=== PATIENT | female | born 1940 | race Caucasian/White ===

== ENCOUNTER 2019-03-20 16:10 | Emergency (ER) | payer OTHER, SELFPAY ==
[2019-03-20 16:15] VITALS: BP 158/69; PULSE 95; RESP 18; TEMP 36.7; O2SAT 97
[2019-03-20 18:38] VITALS: BP 168/86; PULSE 80; RESP 20; O2SAT 97
--- NOTE | 2019-03-21 02:16 | ED_ITS ---
HPI - Anxiety General Chief Complaint: Anxiety Stated Complaint: MULTIPLE PANIC ATTACKS Time Seen by Provider: 03/20/19 18:17 Source: patient and family Mode of arrival: ambulatory Limitations: no limitations History of Present Illness HPI narrative: 78-year-old female nonsmoker presents with her daughter and a chief complaint of significant anxiety since running out of her medications. She recently relocated had not yet established care. She frequently becomes tearful and anxious with rapid breathing with very minimal stimulus. She denies any chest pain or shortness of breath though she frequently gets palpitations. Prior to her arrival she was a bit dizzy and lightheaded but has few other complaints. MD complaint: anxiety Onset (ago): day(s) Severity: moderate Quality: intermittent Place: home History of similar episodes: Yes Provoking factors: medication change Relieving factors: medication Exacerbating factors: thinking about event Associated symptoms: shortness of breath and palpitations Related Data Previous Rx's Medication Instructions Recorded duloxetine 60 mg PO DAILY #14 cap 03/20/19 Allergies Allergy/AdvReac Type Severity Reaction Status Date / Time shellfish derived Allergy Anaphylaxis Verified 03/20/19 16:22 Review of Systems Constitutional Denies chills, Denies fever(s), Denies lethargy and Denies weakness Eyes Denies change in vision, Denies eye discharge, Denies irritation and Denies loss of vision ENT Ears, Nose, Mouth, and Throat: Denies change in voice, Denies neck pain and Denies sore throat Cardiovascular Denies chest pain, Denies irregular heart rhythm, Denies lightheadedness, Denies palpitations, Denies dyspnea, Denies dyspnea on exertion and Denies orthopnea Respiratory Denies cough, Denies dyspnea, Denies dyspnea on exertion and Denies wheezing Gastrointestinal Gastrointestinal: Denies abdominal pain, Denies change in bowel habits, Denies diarrhea, Denies nausea and Denies vomiting Genitourinary Denies hematuria, Denies flank pain, Denies urinary incontinence and Denies urinary urgency Musculoskeletal Denies neck pain Integumentary/Breasts Denies pruritus, Denies erythema, Denies rash and Denies wounds Neurologic Denies confusion, Denies loss of vision and Denies weakness Psychiatric Reports anxiety, Denies confusion, Denies depression, Denies homicidal ideation and Denies suicidal ideation Endocrine Denies palpitations Hematologic/Lymphatic Denies easy bruising Allergic/Immunologic Denies wheezing PFSH Social History Smoking Status: Former smoker Social History Smoking Status: Former smoker Exam Narrative Exam Narrative: GEN: 78-year-old female appears stated age, tearful EYES: Pupils are equal, round, and reactive to light and accommodation. Extraoccular muscles are intact bilaterally. There is no subconjunctival hemorrhage or exudate. CHEST: Lungs are clear to auscultation bilaterally and free of wheezes, rales, or rhonchi. Heart rate is regular rhythm, there are no murmurs, clicks, rubs, or gallops. There is no chest wall tenderness. ABD: Abdomen is soft and nontender. There is no guarding or rebound. Bowel sounds are normal in all 4 quadrants. There is no mass or organomegaly. EXT: Full painless ROM of all extremities with no loss of sensation or strength. SKIN: Warm, pink, and dry. No erythema or rash Initial Vital Signs Initial Vital Signs: Vital Signs Temperature 98.0 F 03/20/19 16:15 Pulse Rate 95 H 03/20/19 16:15 Respiratory Rate 18 03/20/19 16:15 Blood Pressure 158/69 H 03/20/19 16:15 Pulse Oximetry 97 03/20/19 16:15 Course Vital Signs - 8 hr 03/20/19 18:38 Pulse Rate 80 Respiratory Rate 20 Blood Pressure [Left Wrist] 168/86 H Pulse Oximetry 97 Discharge Plan Departure Patient Disposition: Home Clinical Impression: Acute anxiety, Panic disorder Discharge Date/Time: 03/20/19 18:50 Interventions: ED Discharge Assessment Last Done: 03/20/19 18:50 Instructions: Anxiety Disorders Activity Restrictions/Additional Instructions: *You have been diagnosed with [ anxiety, medical noncompliance] *What to do: *Take medications as directed: Your prescription has been electronically transmitted to [facility] in [place] *Follow up with your primary care provider in 2-3 days, call for an appointment. Let them know you were seen in the Emergency Department and that we ask that you be seen in follow up. Attached is the contact info for the new provider line at [facility]. Please call *Return to ER if you should have any new, worsening or concerning symptoms Prescriptions: New duloxetine 60 mg capsule,delayed release(DR/EC) 60 mg PO DAILY Qty: 14 RF: 0 Referrals: [facility] [Outside]
== END 2019-03-20 18:50 | disposition home or self-care (01) ==
PROVIDERS: Emergency Provider Emergency Medicine
DX: F41.9 Anxiety disorder, unspecified (principal); F41.0 Panic disorder [episodic paroxysmal anxiety]
CPT/HCPCS: 99282; 99283

== ENCOUNTER 2019-11-22 18:53 | Emergency (ER) | payer OTHER, SELFPAY ==
[2019-11-22 19:21] VITALS: BP 157/69; PULSE 83; RESP 20; TEMP 36.1; O2SAT 96
[2019-11-22 22:00] VITALS: BP 166/77; PULSE 83; RESP 18; O2SAT 96
--- NOTE | 2019-11-22 22:11 | ED.LOWEXIN ---
HPI - Extremity Injury (Lower) General Chief Complaint: Extremity Injury, Lower Stated Complaint: LEFT LEG FEELS WARM HOT RED Time Seen by Provider: 11/22/19 21:39 Source: patient Mode of arrival: Ambulatory Limitations: no limitations History of Present Illness HPI Narrative: 79-year-old female former smoker with history of extensive, chronic bilateral lower extremity edema presents with a red, painful and warm area to her anterior mcclain. She denies any known injury and states she is concerned for blood clot. She denies any history of blood clot, recent travel or known cancer. She has had no systemic findings such as fever, shaking chills nor nausea vomiting or shortness of breath. She has had no chest pain or cough. She denies abdominal pain. She has had no dysuria, frequency or urgency MD complaint: other Onset (ago): hour(s) Relieving factors: rest Exacerbating factors: palpation Other symptoms: none Related Data Previous Rx's Medication Instructions Recorded duloxetine 60 mg PO DAILY #14 cap 03/20/19 cephalexin [Keflex] 500 mg PO QID 7 Days #28 cap 11/23/19 Allergies Allergy/AdvReac Type Severity Reaction Status Date / Time shellfish derived Allergy Anaphylaxis Verified 03/20/19 16:22 Review of Systems Constitutional Constitutional: Denies chills, Denies fatigue, Denies fever(s), Denies frequent falls, Denies lethargy and Denies weakness Eyes Eyes: Denies change in vision, Denies eye discharge, Denies irritation and Denies loss of vision ENT Ears, Nose, Mouth, and Throat: Denies change in voice, Denies dizziness, Denies neck pain, Denies sore throat and Denies throat swelling Cardiovascular Cardiovascular: Denies chest pain, Denies irregular heart rhythm, Denies lightheadedness, Denies palpitations, Denies dyspnea, Denies dyspnea on exertion and Denies orthopnea Respiratory Respiratory: Denies cough, Denies dyspnea, Denies dyspnea on exertion and Denies wheezing Gastrointestinal Gastrointestinal: Denies abdominal pain, Denies change in bowel habits, Denies diarrhea, Denies nausea and Denies vomiting Genitourinary Genitourinary: Denies hematuria, Denies flank pain, Denies urinary incontinence and Denies urinary urgency Musculoskeletal Musculoskeletal: Denies back pain, Denies muscle weakness, Denies neck pain, Denies numbness and Denies tingling Integumentary/Breasts Skin/Breast: Denies pruritus, Reports erythema, Denies rash, Reports skin pain, Reports skin swelling and Denies wounds Neurologic Neurologic: Denies behavioral changes, Denies confusion, Denies dizziness, Denies frequent falls, Denies loss of vision, Denies numbness, Denies tingling and Denies weakness Psychiatric Psychiatric: Denies anxiety, Denies behavioral changes, Denies confusion, Denies depression, Denies homicidal ideation and Denies suicidal ideation Endocrine Endocrine: Denies fatigue, Denies flushing and Denies palpitations Hematologic/Lymphatic Hematologic/Lymphatic: Denies easy bruising Allergic/Immunologic Allergic/Immunologic: Denies urticaria, Denies throat swelling and Denies wheezing Patient History Social History Smoking Status: Former smoker Smoking Status: Former smoker alcohol intake frequency: other Substance Use Type: does not use Exam Narrative Exam Narrative: GEN: 79-year-old female appears stated age, AOx3 and in mild distress EYES: Pupils are equal, round, and reactive to light and accommodation. Extraoccular muscles are intact bilaterally. There is no subconjunctival hemorrhage or exudate. CHEST: Lungs are clear to auscultation bilaterally and free of wheezes, rales, or rhonchi. Heart rate is regular rhythm, there are no murmurs, clicks, rubs, or gallops. There is no chest wall tenderness. ABD: Abdomen is soft and nontender. There is no guarding or rebound. Bowel sounds are normal in all 4 quadrants. There is no mass or organomegaly. EXT: 3 x 2 cm area of erythema and warmth of left anterior mcclain with a central area of which is a bit darker red. No induration, fluctuance, drainage or obvious break in the skin Full painless ROM of all extremities with no loss of sensation or strength. SKIN: Warm, pink, and dry. No erythema or rash of exposed areas other than that which is noted above Initial Vital Signs Initial Vital Signs: Vital Signs Temperature 96.9 F L 11/22/19 19:21 Pulse Rate 83 11/22/19 19:21 Respiratory Rate 20 11/22/19 19:21 Blood Pressure 157/69 H 11/22/19 19:21 Pulse Oximetry 96 11/22/19 19:21 Course Orders Ordered: Discontinued Medications Cefazolin Sodium (Keflex 250 Mg Prepack) 1 bottle [facility] ONE Stop: 11/23/19 01:03 Last Admin: 11/23/19 01:08 Dose: 500 mg Documented by: HILTON Vital Signs Vital signs: Vital Signs - 8 hr 11/22/19 19:21 11/22/19 22:00 Temperature 96.9 F L Pulse Rate 83 83 Respiratory Rate 20 18 Blood Pressure 157/69 H Blood Pressure [Left Arm] 166/77 H Pulse Oximetry 96 96 MDM - Extremity Injury (Lower) Imaging Data US - DVT: Radiologist's Impression: DkCristobaljonnytraci Luis Alfredo 79 F [address] [address] Ultrasound Report Signed Patient: Tano Root JMR#: [id number] : [id number]:[id number] Age/Sex: 79 / FDate of Service: 11/22/19 Loc: ED Accession Number: [id number] Procedure: US perip venous low extrem lt Ordering Provider: Francisco Hernandez D.O. PROCEDURE: US PERIP VENOUS LOW EXTREM LT INDICATIONS: RED, SWOLLEN, PAINFUL TECHNIQUE: Real-time imaging, as well as color and pulse Doppler interrogation, were performed of the lower extremity deep veins from the inguinal ligament to the popliteal fossa. COMPARISON: None. FINDINGS: Study somewhat limited by patient body habitus. The common femoral, femoral and popliteal veins are normally compressible, and free of intraluminal thrombus. Color and pulse Doppler demonstrate normal phasic intraluminal flow. There is normal augmentation response to distal compression maneuver. IMPRESSION: No deep vein thrombosis of left lower extremity. These findings are concordant with the overnight interpretation. Dictated by: Waleska Cano M.D. on 11/23/2019 at 7:35 Approved by: Waleska Cano M.D. on 11/23/2019 at 7:36 [facility] Narrative Medical decision making narrative: Multiple etiologies for patient's symptoms considered including: [DVT (thought less likely given lack of findings on ultrasound) versus cellulitis which is thought to be the most likely diagnosis given history and physical, versus other] Patient's symptoms improved or duration of stay with above-stated therapies. Findings and discharge diagnosis discussed with patient/family followed by verbalization of understanding Return precautions discussed with patient/family whom verbalize understanding. Discharge Plan Departure Patient Disposition: Home Clinical Impression: Cellulitis of lower extremity Qualifiers: Laterality: left Qualified Code(s): L03.116 - Cellulitis of left lower limb Discharge Date/Time: 11/23/19 01:14 Instructions: DI for Cellulitis -- Adult Activity Restrictions/Additional Instructions: *You have been diagnosed with [left lower extremity cellulitis] *What to do: *Take medications as directed *Follow up with your primary care provider in 2-3 days, call for an appointment. Let them know you were seen in the Emergency Department and that we ask that you be seen in follow up *Return to ER if you should have any new, worsening or concerning symptoms Prescriptions: New cephalexin [Keflex] 500 mg capsule 500 mg PO QID 7 Days Qty: 28 RF: 0 No Action duloxetine 60 mg capsule,delayed release(DR/EC) 60 mg PO DAILY Qty: 14 RF: 0
--- NOTE | 2019-11-22 22:19 | DI.US.S_ITS ---
PROCEDURE: US PERIPH VENOUS LOW EXTREM LT INDICATIONS: RED, SWOLLEN, PAINFUL TECHNIQUE: Real-time imaging, as well as color and pulse Doppler interrogation, were performed of the lower extremity deep veins from the inguinal ligament to the popliteal fossa. COMPARISON: None. FINDINGS: Study somewhat limited by patient body habitus. The common femoral, femoral and popliteal veins are normally compressible, and free of intraluminal thrombus. Color and pulse Doppler demonstrate normal phasic intraluminal flow. There is normal augmentation response to distal compression maneuver. IMPRESSION: No deep vein thrombosis of left lower extremity. These findings are concordant with the overnight interpretation. Dictated by: Waleska Cano M.D. on 11/23/2019 at 7:35 Approved by: Waleska Cano M.D. on 11/23/2019 at 7:36
[2019-11-23 00:08] VITALS: BP 164/70; PULSE 81; RESP 20; O2SAT 97
[2019-11-23] MEDS: cephALEXin 250 MG PREPACK 1 BOTTLE MISC (01:08)
== END 2019-11-23 01:14 | disposition home or self-care (01) ==
PROVIDERS: Emergency Provider Emergency Medicine
DX: L03.116 Cellulitis of left lower limb (principal)
CPT/HCPCS: 93971; 99282; 99283

== ENCOUNTER 2020-02-13 16:48 | Emergency (ER) | payer OTHER, SELFPAY ==
[2020-02-13 17:02] VITALS: BP 134/70; PULSE 90; RESP 15; TEMP 36.4; O2SAT 97
--- NOTE | 2020-02-13 18:44 | PC.NURSE ---
Patient has a history of lymphedema. Has history of cellulites in same region back in november. patient denies fevers or chills. Reports normal amount of swelling to legs. New redness noted morning.
[2020-02-13] MEDS: TRIMETH/SULFA 160/800 (DS) TABLET 2 TAB PO (19:09)
--- NOTE | 2020-02-13 19:10 | ED_ITS ---
HPI - Skin/Abscess/Foreign Bdy General Chief complaint: Skin/Abscess/Foreign Body Stated complaint: Cellulitis of left leg Time Seen by Provider: 02/13/20 19:05 Source: patient Mode of arrival: Wheelchair Limitations: no limitations History of Present Illness HPI narrative: The patient has chronic lymphedema. She presents stents with redness in the left leg for 2 days. The redness raise from the dorsal foot up t o the mid anterior tibia area. With this she has no pain, no fever chills. She has had a prior similar infection. She is not diabetic. She has severe deformities to her nails due to fungal infection. She has the callus formation and plaquing to her lower extremities and feet. Related Data Previous Rx's Medication Instructions Recorded duloxetine 60 mg PO DAILY #14 cap 03/20/19 sulfamethoxazole-trimethoprim 1 tab PO Q12H 10 Days #20 tab 02/13/20 Allergies Allergy/AdvReac Type Severity Reaction Status Date / Time shellfish derived Allergy Anaphylaxis Verified 02/13/20 17:02 Review of Systems Review of Systems ROS Unobtainable: All systems reviewed & are unremarkable except as noted in HPI and below Constitutional Constitutional: Denies chills, Denies fever(s), Denies lethargy and Denies weakness Musculoskeletal Musculoskeletal: Denies numbness Comments: Chronic bilateral leg lymphedema. Integumentary/Breasts Comments: Redness and swelling to the left anterior tibia. Neurologic Neurologic: Denies confusion, Denies numbness and Denies weakness Psychiatric Psychiatric: Denies anxiety and Denies confusion Patient History Medical History (Updated 02/14/20 @ 03:22 by Tello Burnett MD) Cellulitis of left anterior lower leg (Acute) Lymphedema (Acute) Onychomycosis (Acute) Social History Smoking Status: Former smoker Smoking Status: Former smoker alcohol intake frequency: other Substance Use Type: does not use Exam Initial Vital Signs Initial Vital Signs: Vital Signs Temperature 97.6 F 02/13/20 17:02 Pulse Rate 90 02/13/20 17:02 Respiratory Rate 15 02/13/20 17:02 Blood Pressure 134/70 02/13/20 17:02 Pulse Oximetry 97 02/13/20 17:02 Const General: cooperative and well developed Nutritional Appearance: well nourished Skin Other: Bilateral lower extremity lymphedema. Thickened dermis with plaque formation. Erythema radiating from the dose her left foot to the mid anterior tibia. No fluctuance or induration. Neuro General: alert, oriented x3, gait normal and no focal motor deficits Speech: speech normal Sensory Exam: no sensory deficits noted Extrem General: full ROM, no clubbing, cyanosis or edema, no pedal edema and no calf tenderness Other: Bilateral lower extremity lymphedema. Cellulitis changes in left anterior tibia. Ocular echo sees on her nails, with thickened eating and callus formation on both feet. Course Course Course Narrative: I start patient on Septra DS for the cellulitis. She is advised to see her doctor in follow-up for the cellulitis, return here if she has increasing redness or fever. I also suggested she follow-up with a local molding sander to assist in the management she would need for for her feet. I gave her contact for 2 molding sander. Orders Ordered: Discontinued Medications Trimethoprim/Sulfamethoxazole (Bactrim Ds) 2 tab PO NOW ONE Stop: 02/13/20 18:54 Last Admin: 02/13/20 19:09 Dose: 2 tab Documented by: HECTOR Vital Signs Vital signs: Vital Signs - 8 hr 02/13/20 19:21 02/13/20 19:51 Pulse Rate 62 69 Respiratory Rate 15 17 Blood Pressure 151/76 H Blood Pressure [Right Arm] 126/82 Pulse Oximetry 97 97 Discharge Plan Departure Patient Disposition: Home Clinical Impression: Cellulitis of left anterior lower leg, Lymphedema, Onychomycosis Discharge Date/Time: 02/13/20 19:53 Instructions: DI for Cellulitis -- Adult Prescriptions: New sulfamethoxazole-trimethoprim 800-160 mg tablet 1 tab PO Q12H 10 Days Qty: 20 RF: 0 No Action duloxetine 60 mg capsule,delayed release(DR/EC) 60 mg PO DAILY Qty: 14 RF: 0 Referrals: Marylou Travis ARNP [Primary Care Provider] - Herberth Nguyen DPM [Physician] - Nakul Travis DPM [Physician] -
[2020-02-13 19:21] VITALS: BP 126/82; PULSE 62; RESP 15; O2SAT 97
[2020-02-13 19:51] VITALS: BP 151/76; PULSE 69; RESP 17; O2SAT 97
== END 2020-02-13 19:53 | disposition home or self-care (01) ==
PROVIDERS: Emergency Provider Emergency Medicine; PCP Nurse Practitioner
DX: L03.116 Cellulitis of left lower limb (principal); B35.1 Tinea unguium; I89.0 Lymphedema, not elsewhere classified
CPT/HCPCS: 99283

== ENCOUNTER 2020-05-27 13:23 | Emergency (ER) | payer OTHER, SELFPAY ==
[2020-05-27 13:34] VITALS: BP 121/75; PULSE 78; RESP 22; TEMP 36.4; O2SAT 95; BMI 40.3
--- NOTE | 2020-05-27 13:34 | ED_ITS ---
HPI - Extremity Problem <Nell Donovan PA-C - Last Filed: 05/27/20 20:40> General Chief complaint: Extremity Problem,Nontraumatic Stated complaint: left leg cellulitis x2 days Time Seen by Provider: 05/27/20 13:34 Source: patient Mode of arrival: Wheelchair Limitations: no limitations History of Present Illness HPI Narrative: This is a 79-year-old nonsmoking woman with a history of kei ateral severe lymphedema in her lower extremities, cellulitis, who presents to the emergency department complaining of cellulitis in her left lower leg that has been present for 2 days. She states that she woke up in the morning 2 days ago and noted that her leg was very red hot and tender to the touch on the front and side of her mcclain, she felt that there was an area that was slightly raised in the center of the red area, but has not had any drainage. Over the last 2 days she feels that this has improved slightly and that is less hot and less red at this time. She presents to the emergency department because her primary care provider after phone discussion advised that she come in. Her daughter is also present today and notes that she thinks that ?this is the worst I have ever seen it it is a lot more red than it was when you are here before a few months ago?. The area of cellulitis present is in the same place where she had it two months ago and received oral Abx. Patient has otherwise been well for the last 4 days, she says she has been feeling in her normal state of health without any fevers chills nausea vomiting diarrhea body aches or increased fatigue. She does admit that she was sick all last week with a sore throat, body aches, frequent loose stools, decreased appetite and felt like ?I think I had the flu?. This lasted for about 1 week total, during that time she said she was having 4 loose bowel movements a day (normally she has 1-2 formed movements a day). She did not have any other symptoms besides those above and states that her symptoms have resolved completely. She did not seek medical care or get tested for any illnesses (COVID/INFLUENZA) during this time period. Her chronic lymphedema is 2nd to a hip surgery she had about 5 years ago on the left she notes that her lymphedema is always worse on the left although she does have it on both sides. She states that she has been drinking plenty of fluids and currently has a normal appetite for her. MD Complaint: extremity pain and extremity swelling Onset (ago): day(s) (2) Pain Consistency: constant Location: left and lower extremity Severity scale (1-10): 5 (with touch to area of redness, minimal pain without palpation) Quality: other (tender) Radiation: none Relieving factors: nothing Exacerbating factors: other (touch) Associated symptoms: denies other symptoms Context: other (severe bilateral lymphedema for years) Related Data Previous Rx's Medication Instructions Recorded duloxetine 60 mg PO DAILY #14 cap 03/20/19 doxycycline hyclate 100 mg PO BID #20 tab 05/27/20 Allergies Allergy/AdvReac Type Severity Reaction Status Date / Time shellfish derived Allergy Anaphylaxis Verified 02/13/20 17:02 Review of Systems <Nell Donovan PA-C - Last Filed: 05/27/20 20:40> Review of Systems Narrative: GENERAL: Denies chills, fatigue, malaise, fever, sweats. HEENT: Denies sinus pain, ear pain, sore throat, difficulty swallowing, dizziness. RESPIRATORY: Denies dyspnea, cough, wheezing, hemoptysis, sputum. CARDIOVASCULAR: Denies chest pain, palpitations, orthopnea, edema, GASTROINTESTINAL: Denies nausea, vomiting, abdominal pain, positive for diarrhea last week, resolved as of 4 days ago, negative for constipation, melena. : Denies dysuria, frequency, incontinence, hematuria, urinary retention. MUSCULOSKELETAL: Positive for chronic weakness and swelling in lower legs due to lymphedema, uses a walker, negative for joint pain, or bony pain SKIN: Positive for hot red tender swollen area on her left mcclain for the past 2 days, positive for chronic bilateral lower extremity lymphedema with skin changes thick scaling skin and scabbing, nail fungus and very long untrimmed toenails. Denies other rash, skin lesions, or other NEUROLOGIC: Denies weakness, headache, numbness, change in speech, confusion, seizures, incoordination. PSYCHIATRIC: No concerning psychosocial issues. 12 point review of systems is negative except for those stated above ROS Unobtainable: All systems reviewed & are unremarkable except as noted in HPI and below Patient History <Nell Donovan PA-C - Last Filed: 05/27/20 20:40> Medical History Cellulitis of left anterior lower leg (Inactive) Lymphedema (Inactive) Onychomycosis (Inactive) Social History Smoking Status: Former smoker Smoking Status: Former smoker alcohol intake frequency: other Substance Use Type: does not use Exam <Nell Donovan PA-C - Last Filed: 05/27/20 20:40> Narrative Exam Narrative: GENERAL: 79 year old patient appears stated age. Well-nourished, obese patient, in a wheelchair in mild distress. HEAD: Atraumatic. Normocephalic. EYES: Pupils equal round and reactive. Extraocular motions intact. No scleral icterus. No injection or drainage. ENT: Nose without bleeding, purulent drainage. Throat without erythema, tonsillar hypertrophy or exudate. Airway patent. NECK: Trachea midline. Non tender CARDIOVASCULAR: Regular rate and rhythm without murmurs, gallops, or rubs. RESPIRATORY: Clear to auscultation. Breath sounds equal bilaterally. No wheezes, rales, or rhonchi. GASTROINTESTINAL: Abdomen soft, non-tender, nondistended. Hyperactive bowel sounds. EXTREMITIES: Bilateral swelling, lymphedema of the lower extremities, left calf measures 65 cm right calf measures 60 cm at 10 cm below the tibial tuberosity. No pitting edema Or joint tenderness. BACK: Nontender without deformity or crepitance. No flank tenderness. NEURO: AOx3. SKIN: There is a 16 x 18 cm area of erythema, with significant tenderness and moderate heat on the left anterolateral mcclain. This is marked with a skin pen. Bilateral lower extremities have thickened skin particularly around the ankle region, thick scaling with ruth-colored alligator-skin textured regions at the bilateral ankles and extending to the dorsum of the foot. The left foot has a 3 mm scab at the center of the dorsum of the foot. Bilateral toenails with onychomycosis and significant length and curving present. No other rash or erythema of visible areas Initial Vital Signs Initial Vital Signs: Vital Signs Temperature 97.5 F L 05/27/20 13:34 Pulse Rate 78 05/27/20 13:34 Respiratory Rate 22 05/27/20 13:34 Blood Pressure 121/75 05/27/20 13:34 Pulse Oximetry 95 05/27/20 13:34 <DO Adi Simpson Last Filed: 05/28/20 08:42> Initial Vital Signs Initial Vital Signs: Vital Signs Temperature 97.5 F L 05/27/20 13:34 Pulse Rate 78 05/27/20 13:34 Respiratory Rate 22 05/27/20 13:34 Blood Pressure 121/75 05/27/20 13:34 Pulse Oximetry 95 05/27/20 13:34 Scores <MOLLY Mclain Last Filed: 05/27/20 20:40> ABCD2 Citation: Lancet. 2006Oct 14;369(7101):283-11. Validation and refinement of scores to predict very early stroke risk after transient ischaemic attack. Noam SC1, Vanessa PM, Venkat MN, Vinay MF, Elie JS, Kenyatta AL, Sergio S. GCS [place] coma scale eye opening: Spontaneous Thu coma scale verbal response: Orientated [place] coma scale motor response: Obey commands Thu coma scale total score: 15 Course <MOLLY Mclain Last Filed: 05/27/20 20:40> Course Course Narrative: This patient was very uncomfortable with the idea of having to be brought into the hospital for any reason, discussed that we need to obtain labs to better characterize the severity of her infection and that I will need more information in order to determine whether she would benefit from either at IV antibiotics or admission to the hospital or whether she may be able to be treated as an outpatient. Discussed this patient with Dr. Willett, including her recent symptoms concerning for possible coronavirus versus flu, given that she has been symptom free for 4 days, will not pursue testing at this time. 14:16 Labs, specifically CBC and lactate are unremarkable, still awaiting Procalcitonin; anticipate discharging this patient on oral antibiotic therapy, discussed this with attending physician given her history of lymphedema she advises Keflex or clindamycin or Doxy however we will likely treat with doxy as this can cover both strep and staph and reduces C-diff risk. She was notably treated with Bactrim orally when she had a cellulitis of the same location 2 months ago. 14:44 Orders Ordered: ED Orders 05/27/20 13:54 Complete Blood Count AUTO DIFF Stat Comprehensive Metabolic Panel Stat Lactate (Lactic Acid) Stat Procalcitonin Stat 05/27/20 14:34 Blood Culture Stat Vital Signs Vital signs: Vital Signs - 8 hr 05/27/20 13:34 05/27/20 15:00 05/27/20 15:41 Temperature 97.5 F L Pulse Rate 78 74 Respiratory Rate 22 14 Blood Pressure 121/75 127/65 127/65 Pulse Oximetry 95 97 <Ngozi Willett DO - Last Filed: 05/28/20 08:42> Orders Ordered: ED Orders 05/27/20 13:54 Complete Blood Count AUTO DIFF Stat Comprehensive Metabolic Panel Stat Lactate (Lactic Acid) Stat Procalcitonin Stat 05/27/20 14:34 Blood Culture Stat Vital Signs Vital signs: Vital Signs - 8 hr 05/27/20 13:34 05/27/20 15:00 05/27/20 15:41 Temperature 97.5 F L Pulse Rate 78 74 Respiratory Rate 22 14 Blood Pressure 121/75 127/65 127/65 Pulse Oximetry 95 97 MDM - Extremity (Nontraumatic) <Nell Donovan PA-C - Last Filed: 05/27/20 20:40> Differential Diagnosis Differential diagnosis: Likely gout, cellulitis, deep venous thrombosis of upper extremity, lower extremity edema and other (abscess, lymphedema) Lab Data Result diagrams: 05/27/20 13:54 05/27/20 13:54 Labs: Lab Results 05/27/20 05/27/20 05/27/20 Range/Units 13:54 13:54 13:54 WBC 5.8 (4.5-11.0) X10^3/uL RBC 4.70 (4.0-5.2) X10^6/uL Hgb 13.5 (12.0-16.0) g/dL Hct 40.4 (36-46) % MCV 85.9 (80-100) fL MCH 28.8 (26-34) PG MCHC 33.5 (30-36) % RDW 14.2 (11.6-14.8) % Plt Count 126 L (150-400) X10^3/uL Neut % (Auto) 58.7 (50-75) % Lymph % (Auto) 26.5 (25-40) % [place] % (Auto) 10.9 (3-14) % Eos % (Auto) 3.0 (2-4) % Baso % (Auto) 0.9 (0-2) % Neut # (Auto) 3400 (7063-4958) /uL Lymph # (Auto) 1500 (8253-6465) /uL [place] # (Auto) 600 (0-900) /uL Eos # (Auto) 200 (0-450) /uL Baso # (Auto) 0 (0-100) /uL Sodium 137 (137-145) mmol/L Potassium 3.9 (3.4-5.1) mmol/L Chloride 102 (98-107) mmol/L Carbon Dioxide 28 (22-32) mmol/L BUN 16 (7-17) mg/dL Creatinine 0.87 (0.52-1.04) mg/dL Estimated GFR > 60.0 (>60) mL/min BUN/Creatinine Ratio 18.4 (6-22) Glucose 136 H (80-110) mg/dL Lactate (0.7-2.1) mmol/L Calcium 9.0 (8.4-10.2) mg/dL Total Bilirubin 1.8 H (0.2-1.3) mg/dL AST 33 (14-36) IU/L ALT 12 (<35) IU/L Alkaline Phosphatase 92 (38-126) U/L Total Protein 8.0 (6.3-8.2) g/dL Albumin 3.8 (3.5-5.0) g/dL Globulin 4.2 H (1.7-4.1) g/dL Albumin/Globulin Ratio 0.9 L (1.0-2.8) Procalcitonin 0.25 (<0.5) ng/mL 05/27/20 Range/Units 13:54 WBC (4.5-11.0) X10^3/uL RBC (4.0-5.2) X10^6/uL Hgb (12.0-16.0) g/dL Hct (36-46) % MCV (80-100) fL MCH (26-34) PG MCHC (30-36) % RDW (11.6-14.8) % Plt Count (150-400) X10^3/uL Neut % (Auto) (50-75) % Lymph % (Auto) (25-40) % [place] % (Auto) (3-14) % Eos % (Auto) (2-4) % Baso % (Auto) (0-2) % Neut # (Auto) (1453-5360) /uL Lymph # (Auto) (9190-5458) /uL [place] # (Auto) (0-900) /uL Eos # (Auto) (0-450) /uL Baso # (Auto) (0-100) /uL Sodium (137-145) mmol/L Potassium (3.4-5.1) mmol/L Chloride (98-107) mmol/L Carbon Dioxide (22-32) mmol/L BUN (7-17) mg/dL Creatinine (0.52-1.04) mg/dL Estimated GFR (>60) mL/min BUN/Creatinine Ratio (6-22) Glucose (80-110) mg/dL Lactate 2.0 (0.7-2.1) mmol/L Calcium (8.4-10.2) mg/dL Total Bilirubin (0.2-1.3) mg/dL AST (14-36) IU/L ALT (<35) IU/L Alkaline Phosphatase (38-126) U/L Total Protein (6.3-8.2) g/dL Albumin (3.5-5.0) g/dL Globulin (1.7-4.1) g/dL Albumin/Globulin Ratio (1.0-2.8) Procalcitonin (<0.5) ng/mL MDM Narrative Medical decision making narrative: This is a generally well-appearing 79-year-old presenting to ED in a wheelchair with her daughter present history of chronic bilateral lymphedema of the lower extremities, recent cellulitis of left lower extremity 2 months ago who presents complaining of cellulitis of the left lower extremity. This is been present for 2 days. She currently and for the past 4 days has no other systemic symptoms, vitals today are unremarkable, labs are also unremarkable I have low concern for sepsis or systemic infection. Exam is consistent with cellulitis, I have low concern for DVT. Bilateral calves do measure distinctly different however this is normal for the patient per patient. She has not been complaining of increasing pain other the site of cellulitis. Patient discharged with prescription for doxycycline. Instructions to follow-up with primary care physician in the next 48 hours for further evaluation. Referral to Podiatry for care of her feet. Emergency return precautions provided, all questions answered. <Ngozi Willett, - Last Filed: 05/28/20 08:42> Lab Data Labs: Lab Results 05/27/20 05/27/20 05/27/20 Range/Units 13:54 13:54 13:54 WBC 5.8 (4.5-11.0) X10^3/uL RBC 4.70 (4.0-5.2) X10^6/uL Hgb 13.5 (12.0-16.0) g/dL Hct 40.4 (36-46) % MCV 85.9 (80-100) fL MCH 28.8 (26-34) PG MCHC 33.5 (30-36) % RDW 14.2 (11.6-14.8) % Plt Count 126 L (150-400) X10^3/uL Neut % (Auto) 58.7 (50-75) % Lymph % (Auto) 26.5 (25-40) % [place] % (Auto) 10.9 (3-14) % Eos % (Auto) 3.0 (2-4) % Baso % (Auto) 0.9 (0-2) % Neut # (Auto) 3400 (4727-0595) /uL Lymph # (Auto) 1500 (5235-1734) /uL [place] # (Auto) 600 (0-900) /uL Eos # (Auto) 200 (0-450) /uL Baso # (Auto) 0 (0-100) /uL Sodium 137 (137-145) mmol/L Potassium 3.9 (3.4-5.1) mmol/L Chloride 102 (98-107) mmol/L Carbon Dioxide 28 (22-32) mmol/L BUN 16 (7-17) mg/dL Creatinine 0.87 (0.52-1.04) mg/dL Estimated GFR > 60.0 (>60) mL/min BUN/Creatinine Ratio 18.4 (6-22) Glucose 136 H (80-110) mg/dL Lactate (0.7-2.1) mmol/L Calcium 9.0 (8.4-10.2) mg/dL Total Bilirubin 1.8 H (0.2-1.3) mg/dL AST 33 (14-36) IU/L ALT 12 (<35) IU/L Alkaline Phosphatase 92 (38-126) U/L Total Protein 8.0 (6.3-8.2) g/dL Albumin 3.8 (3.5-5.0) g/dL Globulin 4.2 H (1.7-4.1) g/dL Albumin/Globulin Ratio 0.9 L (1.0-2.8) Procalcitonin 0.25 (<0.5) ng/mL 05/27/20 Range/Units 13:54 WBC (4.5-11.0) X10^3/uL RBC (4.0-5.2) X10^6/uL Hgb (12.0-16.0) g/dL Hct (36-46) % MCV (80-100) fL MCH (26-34) PG MCHC (30-36) % RDW (11.6-14.8) % Plt Count (150-400) X10^3/uL Neut % (Auto) (50-75) % Lymph % (Auto) (25-40) % [place] % (Auto) (3-14) % Eos % (Auto) (2-4) % Baso % (Auto) (0-2) % Neut # (Auto) (1486-4529) /uL Lymph # (Auto) (6776-4390) /uL [place] # (Auto) (0-900) /uL Eos # (Auto) (0-450) /uL Baso # (Auto) (0-100) /uL Sodium (137-145) mmol/L Potassium (3.4-5.1) mmol/L Chloride (98-107) mmol/L Carbon Dioxide (22-32) mmol/L BUN (7-17) mg/dL Creatinine (0.52-1.04) mg/dL Estimated GFR (>60) mL/min BUN/Creatinine Ratio (6-22) Glucose (80-110) mg/dL Lactate 2.0 (0.7-2.1) mmol/L Calcium (8.4-10.2) mg/dL Total Bilirubin (0.2-1.3) mg/dL AST (14-36) IU/L ALT (<35) IU/L Alkaline Phosphatase (38-126) U/L Total Protein (6.3-8.2) g/dL Albumin (3.5-5.0) g/dL Globulin (1.7-4.1) g/dL Albumin/Globulin Ratio (1.0-2.8) Procalcitonin (<0.5) ng/mL Discharge Plan Departure Patient Disposition: Home Clinical Impression: Cellulitis of left anterior lower leg, Lymphedema of both lower extremities Discharge Date/Time: 05/27/20 15:42 Instructions: DI for Cellulitis -- Adult, DI for Wound Infection Activity Restrictions/Additional Instructions: Thank you for letting us be part of your care in the emergency department today. There is no evidence of an emergent or life threatening illness at this time, but follow up with your doctor in 1-2 days is recommended nonetheless to continue to rule out serious underlying causes of your symptoms. As we discussed if you do develop any new or worsening symptoms please do not hesitate to come in to be re-evaluated. While your labs looked fine right now your blood cultures are still pending, and if you do develop fever chills increasing redness heat swelling or tenderness at the area of your cellulitis or anything else of concern to you please do not hesitate to seek medical care return to the emergency department. I have sent the antibiotic prescription in to the [facility] in [place] as you requested. I have filled out a form with a request to have be referred to the wound care center [facility], hopefully they will be able to see you and if they cannot address all of your issues they may be able to refer you to podiatry if that will be helpful too. Please pick up and delivery driver and start taking your antibiotics today. Please call your primary care office for an appointment. Please return to the Emergency Department for any worsening or persistent symptoms. Please take medications as directed. Prescriptions: New doxycycline hyclate 100 mg tablet 100 mg PO BID Qty: 20 RF: 0 No Action duloxetine 60 mg capsule,delayed release(DR/EC) 60 mg PO DAILY Qty: 14 RF: 0 Referrals: Marylou Travis ARNP [Primary Care Provider] - <Ngozi Willett DO - Last Filed: 05/28/20 08:42> Cosign ED Attending Bettyature Attestation: I was immediately available in the department for consultation. Documentation has been reviewed. I agree with assessment and plan.
--- NOTE | 2020-05-27 13:51 | PC.NURSE ---
Pt has lymphedema in left leg. Erythemic area on calf/mcclain. Pt refuses to let staff take sock off at assessment/triage. States it is too hard to get back on. Informed pt that we would assist to get sock back on and that we cannot assess ankle and foot without taking it off, pt still refuses.
[2020-05-27 14:28] LABS: Add Manual Diff / Slide Review NO; Basophils Absolute Auto 0 /uL (0-100); Basophils Percent Auto 0.9 % (0-2); Eosinophils Absolute Auto 200 /uL (0-450); Hematocrit 40.4 % (36-46); Hemoglobin 13.5 g/dL (12.0-16.0); Lymphocytes Absolute Auto 1500 /uL (1100-4500); Lymphocytes Percent Auto 26.5 % (25-40); Mean Corpuscular HGB Conc 33.5 % (30-36); Mean Corpuscular Hemoglobin 28.8 PG (26-34); Mean Corpuscular Volume 85.9 fL (80-100); Monocytes Absolute Auto 600 /uL (0-900); Monocytes Percent Auto 10.9 % (3-14); Neutrophils Absolute Auto 3400 /uL (1500-7000); Neutrophils Percent Auto 58.7 % (50-75); Platelet Count 126 X10^3/uL (150-400); Red Cell Distribution Width 14.2 % (11.6-14.8); White Blood Cell Count 5.8 X10^3/uL (4.5-11.0)
[2020-05-27 14:36] LABS: Alanine Aminotransferase 12 IU/L (<35); Albumin 3.8 g/dL (3.5-5.0); Albumin Globulin Ratio 0.9 (1.0-2.8); Alkaline Phosphatase 92 U/L (38-126); Aspartate Aminotransferase 33 IU/L (14-36); BUN Creatinine Ratio 18.4 (6-22); Bilirubin Total 1.8 mg/dL (0.2-1.3); Blood Urea Nitrogen 16 mg/dL (7-17); Carbon Dioxide 28 mmol/L (22-32); Chloride 102 mmol/L (98-107); Estimated Glomerular Filt Rate > 60.0 mL/min (>60); Globulin 4.2 g/dL (1.7-4.1); Glucose 136 mg/dL (80-110); Sodium 137 mmol/L (137-145)
[2020-05-27 14:38] LABS: HEMOLYSIS 66 (0-50); Potassium 3.9 mmol/L (3.4-5.1)
[2020-05-27 14:57] LABS: Procalcitonin 0.25 ng/mL (<0.5)
[2020-05-27 15:00] VITALS: BP 127/65
[2020-05-27 15:41] VITALS: BP 127/65; PULSE 74; RESP 14; O2SAT 97
[2020-05-27 16:22] LABS: Reflexed Lactate in 2 Hours Y
== END 2020-05-27 15:42 | disposition home or self-care (01) ==
PROVIDERS: Emergency Provider Student in an Organized Health Care Education/Training Program; PCP Nurse Practitioner
DX: L03.116 Cellulitis of left lower limb (principal); I89.0 Lymphedema, not elsewhere classified
CPT/HCPCS: 36415; 80053; 83605; 84145; 85025; 87040; 99283